=== PATIENT | female | born 1980 | race Caucasian/White ===

== ENCOUNTER 2022-11-10 09:23 | Emergency (ER) | payer OTHER ==
[2022-11-10] MEDS ORDERED: Acetaminophen 500 MG Tab PO ONE (10:03)
[2022-11-10] MEDS ORDERED: traMADol 50 MG Tab PO ONE (10:03)
== END 2022-11-10 11:37 | disposition home or self-care (01) ==
LOC: FB.ED 09:23
DX: S70.12XA Contusion of left thigh, initial encounter (principal); Z88.8 Allergy status to other drugs, medicaments and biological substances; W20.8XXA Other cause of strike by thrown, projected or falling object, initial encounter
CPT/HCPCS: 73552; 73590; 99000; 99283; A9270

== ENCOUNTER 2023-06-27 18:36 | Emergency (ER) | payer SELFPAY ==
[2023-06-27] MEDS: Ketorolac 30 MG/ML SDV IM ONE (19:12)
== END 2023-06-27 19:19 | disposition home or self-care (01) ==
LOC: FB.ED 18:36
DX: N90.89 Other specified noninflammatory disorders of vulva and perineum (principal); Z88.8 Allergy status to other drugs, medicaments and biological substances; Z79.899 Other long term (current) drug therapy; Z86.16 Personal history of COVID-19; Z86.19 Personal history of other infectious and parasitic diseases
CPT/HCPCS: 96372; 99283; J1885